=== PATIENT | male | born 1945 | race Caucasian/White ===

== ENCOUNTER 2016-09-17 13:00 | Emergency (ER) | payer OTHER ==
[2016-09-17] MEDS ORDERED: NS 500 ML IV ONE ×2 (13:06→15:18)
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
--- NOTE | 2016-09-17 13:43 | Diag Imaging Result Document ---
PROCEDURE NAME: CHEST-PORTABLE - 09/17/2016 AP PORTABLE CHEST: TIME: 1300 hours. FINDINGS: There is apical pleural scarring, particularly on the right. There is no evidence of acute cardiac or pulmonary disease, otherwise. There are scattered granulomata. IMPRESSION: No acute disease. Chronic granulomatous changes.
[2016-09-17 13:59] LABS: BASO% 0.9 % (0.0-0.8); EOS# 0.11 X1000 (0.0-0.7); EOS% 1.4 % (0.0-10.0); HEMATOCRIT 36.6 % (42.0-52.0); HEMOGLOBIN 12.4 g/dL (14.0-18.0); LYMPH% 22.5 % (20.5-51.1); MANUAL DIFF NEEDED? YES; MCH 30.9 PG (27-31); MCHC 33.9 g/dL (33-37); MCV 91.3 FL (81-99); MONO# 0.75 X1000 (0.11-0.59); MONO% 9.4 % (1.7-9.3); MPV 9.4 FL (7.4-10.4); NEUT% 65.8 % (42.2-75.2); PLT 293 X1000 (130-400); RBC 4.01 XMIL (4.7-6.1)
[2016-09-17 14:02] LABS: INR 1.09; PROTIME 11.6 Seconds (9.2-11.7)
[2016-09-17 14:12] LABS: BANDS 4 % (0-1); EOS 2 % (1-10); LYMPHS 22 % (21-51); MONO 8 % (1-9)
[2016-09-17 14:13] LABS: LARGE PLATELETS OCCASIONAL
[2016-09-17 14:31] LABS: AGAP 16; ALBUMIN 3.6 g/dL (3.5-5.0); ALKALINE PHOSPHATASE 89 U/L (32-122); BUN 19 mg/dL (8-22); CALCIUM 10.2 mg/dL (8.8-10.2); CHLORIDE 90 mmol/L (98-107); CK PROFILE 122 U/L (24-204); COSMO 272; GOT 16 U/L (10-34); GPT 6 U/L (10-44); POTASSIUM 4.2 mmol/L (3.5-5.1); SODIUM 136 mmol/L (136-145); TCO2 30 mmol/L (25-35)
[2016-09-17] MEDS ORDERED: D50W SYRINGE IV ONE (14:39)
[2016-09-17 15:30] LABS: URINE CULTURE NEEDED? NO; URINE MICRO REVIEW NEEDED? NO; URINE SOURCE CATH
[2016-09-17 15:39] LABS: BILIRUBIN URINE SMALL (NEGATIVE); BLOOD URINE NEGATIVE (NEGATIVE); COLOR YELLOW; GLUCOSE URINE NEGATIVE (NEGATIVE); LEUKOCYTES URINE NEGATIVE (NEGATIVE); NITRITE URINE NEGATIVE (NEGATIVE); PH URINE 5.5; PROTEIN URINE 30 mg/dL (NEGATIVE); SP GRAVITY URINE 1.023; TURBIDITY URINE CLEAR (CLEAR); UROBILINOGEN URINE 2 mg/dL (NORMAL)
[2016-09-17 15:40] LABS: UR EPITHELIAL CELLS <10 /HPF (<10); URINE BACTERIA NEGATIVE /HPF; URINE RBC <10 /HPF (<10); URINE WBC <10 /HPF (<10)
[2016-09-17 16:16] VITALS: BP 179/107
--- NOTE | 2016-09-18 05:39 | EKG Report ---
Test Performed on : 09/17/2016 2:55:24 PM Test Reason : weakness Blood Pressure : / mmHG Vent. Rate : 065 BPM Atrial Rate : 065 BPM P-R Int : 158 ms QRS Dur : 088 ms QT Int : 442 ms P-R-T Axes : 077 076 046 degrees QTc Int : 459 ms Normal sinus rhythm. Left ventricular hypertrophy with repolarization abnormality Abnormal ECG No previous ECGs available Unconfirmed Result
== END 2016-09-17 17:05 | disposition home or self-care (01) ==
LOC: ED 13:00 → SUPCPDRO 13:00 → ED 17:05
DX: E86.0 Dehydration (principal); M62.81 Muscle weakness (generalized); L89.221 Pressure ulcer of left hip, stage 1; R94.31 Abnormal electrocardiogram [ECG] [EKG]; R53.83 Other fatigue; R59.0 Localized enlarged lymph nodes; R62.7 Adult failure to thrive; J44.9 Chronic obstructive pulmonary disease, unspecified; C85.90 Non-Hodgkin lymphoma, unspecified, unspecified site; F17.210 Nicotine dependence, cigarettes, uncomplicated; Z79.899 Other long term (current) drug therapy; Z86.73 Personal history of transient ischemic attack (TIA), and cerebral infarction without residual deficits; Z86.79 Personal history of other diseases of the circulatory system; D64.9 Anemia, unspecified
CPT/HCPCS: 71010; 80053; 81001; 82550; 84484; 85025; 85610; 93005